=== PATIENT | male | born 1955 | race Two or more races ===

== ENCOUNTER → 2020-04-11 | Outpatient (CLI) | payer OTHER ==
--- NOTE | 2020-04-11 11:57 | XR ---
EXAMINATION TYPE: XR chest 2V, XR ribs LT DATE OF EXAM: 04/11/2020 COMPARISON: NONE HISTORY: Chest and left-sided rib pain after fall injury. TECHNIQUE: Frontal and lateral views of the chest are obtained. FINDINGS: There is chronic emphysematous and parenchymal fibrotic changes without suspicious focal a ir space opacity, pleural effusion, or pneumothorax seen. The cardiac silhouette size is upper limit s of normal. There is old posterior lateral right sixth rib fracture noted. Dedicated images of the left-sided ribs show no acute displaced fracture. IMPRESSION: 1. Chronic changes without acute pulmonary process. 2. No acute displaced left-sided rib fractures are evident.
== END | disposition home or self-care (01) ==
LOC: RADXRMAIN 11:16
PROVIDERS: ATTEND Emergency Medicine
DX: S20.222A Contusion of left back wall of thorax, initial encounter (principal); S30.1XXA Contusion of abdominal wall, initial encounter
CPT/HCPCS: 71046

== ENCOUNTER → 2020-05-27 | Outpatient (CLI) | payer BC ==
--- NOTE | 2020-05-27 15:33 | US ---
EXAMINATION TYPE: US venous doppler duplex LE LT DATE OF EXAM: 05/27/2020 3:25 PM COMPARISON: NONE CLINICAL HISTORY: I82.402 ACUTE EMBOLISM AND THROMBOSIS DEEP VEINS LT LEG. 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 VESSELS IMAGED: External Iliac Vein (EIV) Common Femoral Vein Deep Femoral Vein Greater Saphenous Vein * Femoral Vein Popliteal Vein Small Saphenous Vein * Proximal Calf Veins (* superficial vessels) Left Leg: Negative for DVT There is normal flow, compressibility, vascular waveforms. IMPRESSION: No evident deep venous arthrosis at or above the left knee.
== END | disposition home or self-care (01) ==
LOC: RADUSWWP 15:07
PROVIDERS: ATTEND Family Medicine
DX: I82.402 Acute embolism and thrombosis of unspecified deep veins of left lower extremity (principal)